=== PATIENT | male | born 1975 | race Caucasian/White ===

== ENCOUNTER → 2017-05-04 06:12 | Outpatient (CLI) | payer MEDICAID, SELFPAY ==
--- NOTE | 2017-05-04 12:37 | NEURO ---
NCS and/or EMG Patient Report Ordering Doctor: Garry Chandler DATE OF SERVICE: 05/04/17 Gus Leyva is a 42-year-old male presents for electrodiagnostic testing of the lower limbs. He reports pain in the lower back with radiation into both lower limbs, worse on the right side. He underwent lumbar spine surgery in October 2016. Electrodiagnostic findings: Peroneal motor nerve demonstrates normal distal latency amplitude and conduction velocity bilaterally. Normal tibial motor response bilaterally. Peroneal and tibial F waves within normal limits H reflex prolonged on the right side. Mildly prolonged sural latency bilaterally. Needle EMG demonstrates 1+ for relation potentials in the right vastus medialis, right anterior tibialis, right peroneus longus and right lower lumbar paraspinals. 1+ polyphasic motor units noted in the right vastus medialis, right anterior tibialis and right peroneus longus. Electrodiagnostic impression: This is an abnormal study. 1. Findings demonstrate acute on chronic right sided L4 and L5 radiculopathy. 2. No electrodiagnostic evidence is noted for peripheral polyneuropathy. 3. No EMG evidence for left-sided lumbar radiculopathy. If there are any further questions, please do not hesitate to contact me.
== END ==
PROVIDERS: Family Provider Nurse Practitioner Family; PCP Nurse Practitioner Family; Visit Provider Orthopaedic Surgery
DX: M51.36 Other intervertebral disc degeneration, lumbar region (principal); M51.27 Other intervertebral disc displacement, lumbosacral region; M51.26 Other intervertebral disc displacement, lumbar region
CPT/HCPCS: 95886; 95912

== ENCOUNTER → 2017-07-12 09:25 | Outpatient (CLI) | payer MEDICAID, SELFPAY ==
--- NOTE | 2017-07-12 09:27 | RAD_ITS ---
STUDY: X-RAY - LUMBOSACRAL SPINE REASON FOR EXAM: Male, 42 years old. Lower back pain. TECHNIQUE: 7 view(s) of the lumbosacral spine were obtained. COMPARISON: None FINDINGS: Normal lumbar lordosis. There is no substantial scoliosis. There is normal alignment of the vertebrae. There is no alteration of alignment with flexion or extension. There is multilevel endplate spondylosis of the lumbar vertebrae. There is multi-level degenerative disc disease with multi-level disc space narrowing. This is most marked at L4-5. No spine fracture Normal bilateral sacral ala, sacroiliac joints, and visualized sacrum. Normal visualized soft tissue structures. RAD/L/S Spine Comp/w Bending Views IMPRESSION: Degenerative changes of the spine, as detailed above. Electronically Signed: Real Lee DO at 21:20 EDT Tel [phone], Service support ,
== END ==
PROVIDERS: Family Provider Nurse Practitioner Family; PCP Nurse Practitioner Family; Visit Provider Orthopaedic Surgery
DX: M54.16 Radiculopathy, lumbar region (principal)
CPT/HCPCS: 72114

== ENCOUNTER 2017-10-25 10:30 | Outpatient (RCR) | payer MEDICAID, SELFPAY ==
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
--- NOTE | 2017-08-18 12:18 | HP.PTREVAL_ITS ---
Danyell Mota, It has been my pleasure to treat MAURO MORENO over the last 9 visits for RIGHT LUMBAR RADICULOPATHY WITH STENOSIS. Please see the progress note below for an update on the physical therapy plan of care! Subjective: PATIENT REPORTS IT IS SLOW BUT WATER THERAPY IS HELPING. PATIENT REPORTS THAT HE FEELS BETTER DURING ANT THE REST OF THE DAY AFTER A POOL SESSION. PATIENT REPORTS HE POSTPONED HIS SURGERY WITH DR. MOTA BECAUSE HE WANTS TO TRY MORE PHYSICAL THERAPY AND ANYTHING ELSE POSSIBLE BEFORE SURGERY. PATIENT HAS NOT QUIT SMOKING YET. PLANNING TO MAKE FOLLOW UP APPOINTMENT WITH DR. MOTA BUT HE CURRENTLY DOES NOT HAVE ONE. PATIENT REPORTS THAT GETTING OUT OF THE BED INI THE MORNING IS GOING BETTER. HE ALSO REPORTS IT TAKES LESS TIME TO GET MOVING. LESS PAIN INTENSITY THROUGHOUT THE DAY NOW AND GETTING UP AND DOWN STEPS BETTER. BEFORE STARTING PT HE REPORTS HE WAS WORSENING AND NOW HE IS HAVING IMPROVEMENT. PATIENT IS QUESTIONING IF HE SHOULD DO LAND PT TOO TO HELP LOOSE WEIGHT? Objective/Function: SLOW PROGRESS TOWARD ALL PT GOALS. PATIENT HAS DECREASED LUMBAR TENDERNESS, REPORTS OF IMPROVED FUNCTION AND DECREASED PAIN AND IMPROVED LUMBAR ROM. HE IS ALSO TOLERATING PRE IN AQUATIC THERAPY. UPON EXAM: PATIENT IS ABLE TO INDEP'LY TRANSFER FROM SIT TO STAND WITHOUT UE ASSIST. INDEP GAIT INTO PT WITH NO AD'S, DECREASED CADANCE AND MILD INCREASED TRUNK FLEXION. Dural Signs: POSITIVE SALOME LE DURAL SIGNS. Lumbar mvmt loss: flex - NIL +. ext - MOD. R SG - MIN. L SG - MIN. PATIENT HAS C/O INCREASED LBP WITH LUMBAR ROM TESTING ALL PLANES. Core strength: POOR. Palpation: PATIENT IS ACTUALLY NOT TENDER WITH PALPATION OF THE LUMBOSACRAL REGIONS TODAY. THIS IS A BIG CHANGE. LUMBAR OSWESTRY HAS NOT CHANGED SIGNIFICANTLY (FROM 29 TO 28). Plan Plan: CONT PER POC. WITH AQUATIC THERAPY. INSTRUCTED PATIENT TO SCHEDULE FOLLOW UP WITH DR. MOTA. PATIENT WANTS TO STAY WITH AQUATIC THERAPY 2 TIMES A WEEK AND STATES HIS BROTHER HAS A POOL THAT HE CAN START USING NOW TO SUPPLEMENT WHAT HE IS DOING IN HERE. WANTS TO WAIT TO CONSIDER LAND PT AGAIN AT NEXT RECHECK. Goals Goal 1:: DECREASE C/O BACK AND LE SX'S Goal Time Frame: 4-6 Weeks Goal Progress: Progressing Goal 2:: IMPROVE PERSONAL CARE, LIFTING, WALKING, SITTING, STANDING, SLEEPING, SOCIAL LIFE, TRAVEL, AND WORK/HOMEMAKING FUNCTION. Goal Time Frame: 4-6 Weeks Goal Progress: Not Progressing Goal 3:: INSTRUCT IN PROPHYLAXIS Goal Time Frame: 4-6 Weeks Goal Progress: Progressing Anticipated Interventions Patient/Client Instruction: Educate patient on: Condition, Plan of Care, Risk Factors, Benefits of Fitness Program For the Purpose of:: To improve self management Therapeutic Exercise to Include: Strength training, Body mechanics, Postural training, Flexibilty training, Gait and locomotor training, In an aquatic setting, Active ROM, Dynamic Lumbar Stabilization For the Purpose of:: To decrease pain, To increase ROM, To improve muscle performance and motor function, To increase tolerance to activity/condition/ position, To improve ability of physical actions for home/community/work/leisure , To improve gait and locomotor functions Please do not hesitate to contact me at [phone] by phone or Fax: if you have questions or concerns regarding this new plan of care! Sincerely, Tracey Fink
--- NOTE | 2017-09-19 17:34 | HP.PTREVAL_ITS ---
Danyell Mota, It has been my pleasure to treat MAURO MORENO over the last 15 visits for RIGHT LUMBAR RADICULOPATHY WITH STENOSIS. Please see the progress note below for an update on the physical therapy plan of care! Subjective: PATIENT REPORTS HE THINKS THE POOL HELPS SOME. FOLLOW UP WITH DR. MOTA THE END OF NEXT MONTH. HE REPORTS THE POOL THERAPY JUST HELPED HIM GET A LITTLE MORE MOTION. STATES HE POSTPONED SURGERY INDEFINATELY BECAUSE THE WATER THERAPY SEEMS TO BE HELPIING AND HE IS AFRAID SURGERY WILL MAKE IT WORSE THAN WHAT IT IS NOW. SURGERY WAS ORIGINALLY SCHEDULLED FOR August. PATIENT REPORTS HE HAS NOT STOPPED SMOKING. PATIENT REPORTS HE HAS TO MOVE VERY VERY CAREFULLY OR HE IS SCREWED UP FOR THE REST OF THE DAY OR LONGER. PATIENT REPORTS HE HAD TO MISS A FEW APPOINTMENTS BECAUSE HE DIDN'T FEEL SAFE DRIVING WITH HIS LEG SX'S. PATIENT REPORTS HE WOULD LIKE TO CONTINUE AQUATIC THERAPY IF POSSIBLE. STATES HE CAN USE HIS [employer] POOL BUT HIS POOL IS NOT DEEP ENOUGH FOR HIM TO DO A LOT OF THE EX'S. HE ALSO WANTS TO CONTINUE BECAUSE IT IS HELPING AND HE WANTS TO AVOID SURGERY IF AT ALL POSSIBLE. REPORTS THAT HE IS ABLE TO BEND FOR EVERYDAY ACTIVITIES WITH LESS PAIN. Objective/Function: SLOW PROGRESS CONTINUES TO BE SEEN TOWARD ALL PT GOALS. PATIENT HAS DECREASED LUMBAR TENDERNESS, REPORTS OF IMPROVED FUNCTION AND DECREASED PAIN AND IMPROVED LUMBAR ROM. HE IS ALSO TOLERATING PRE IN AQUATIC THERAPY. UPON EXAM: PATIENT IS ABLE TO INDEP'LY TRANSFER FROM SIT TO STAND WITHOUT UE ASSIST. INDEP GAIT INTO PT WITH NO AD'S, DECREASED CADANCE AND MILD INCREASED TRUNK FLEXION AND INTERMITTENT LIMP ON RIGHT LE ESPECIALLY INITIATING GAIT AFTER SITTING. Dural Signs: POSITIVE SALOME LE DURAL SIGNS. Lumbar mvmt loss : flex - NIL +. ext - MOD. R SG - MIN. L SG - MIN. PATIENT DENIES INCREASED LBP WITH LUMBAR ROM TESTING ALL PLANES TODAY EXCEPT A LITTLE BIT OF RIGHT LBP WITH FLEX. Core strength: POOR. Palpation: NO TENDERNESS WITH PALPATION OF LUMBAR OR BUTTOCK REGIONS TODAY. OTHER: LUMBAR OSWESTRY HAS IMPROVED FROM 28 TO 25. Plan Plan: CONT AQUATIC THERAPY 2X'S A WEEK WORKING TOWARD SAME GOALS AND PROGRESSING THER EX TOLERATED. PATIENT IS AGREEABLE. PATIENT TO CONTINUE SUPPLEMENTING WITH USE OF [employer]. Goals Goal 1:: DECREASE C/O BACK AND LE SX'S Goal Time Frame: 4-6 Weeks Goal Progress: Progressing Goal 2:: IMPROVE PERSONAL CARE, LIFTING, WALKING, SITTING, STANDING, SLEEPING, SOCIAL LIFE, TRAVEL, AND WORK/HOMEMAKING FUNCTION. Goal Time Frame: 4-6 Weeks Goal Progress: Progressing Goal 3:: INSTRUCT IN PROPHYLAXIS Goal Time Frame: 4-6 Weeks Goal Progress: Progressing Anticipated Interventions Patient/Client Instruction: Educate patient on: Condition, Plan of Care, Risk Factors, Benefits of Fitness Program For the Purpose of:: To improve self management Therapeutic Exercise to Include: Strength training, Body mechanics, Postural training, Flexibilty training, Gait and locomotor training, In an aquatic setting, Active ROM, Dynamic Lumbar Stabilization For the Purpose of:: To decrease pain, To increase ROM, To improve muscle performance and motor function, To increase tolerance to activity/condition/ position, To improve ability of physical actions for home/community/work/leisure , To improve gait and locomotor functions Please do not hesitate to contact me at [phone] by phone or Fax: if you have questions or concerns regarding this new plan of care! Sincerely, Tracey Fink
--- NOTE | 2017-10-25 11:53 | HP.PTDCSUM ---
HP - PT D/C Summary It has been my pleasure to treat MAURO MORENO under orders from Danyell Mota, for the diagnosis of RIGHT LUMBAR RADICULOPATHY WITH STENOSIS for a total of 23 visit(s). Discharge Date: 10/25/17 Please see the following information for a summary of their discharge status. - Subjective Subjective: PATIENT REPORT HE IS NOT GETTING MUCH PAIN DOWN THROUGH HIS LEG HE WAS. HE REPORTS HE IS ACTUALLY HAVING GOOD DAYS NOW WHERE HE FEELS LIKE HE CAN GET UP AND DO SOME THINGS. HE ATTRIBUTES HIS IMPROVEMENT TO THE WATER THERAPY AND AN INVERSION TABLE. BACK ON GABAPENTIN AND BACKLAFIN AND HAS BEEN SINCE LAST WEEK. THE BACK PAIN I CAN DEAL WITH BUT THE LEG PAIN EFFECTS MY MOBILITY AND KEEPS ME UP AT NIGHT. PATIENT REPORTS THE POOL THERAPY HELPS A LOT AND HE WANTS TO CONTINUE. PATIENT REPORTS HE CAN WALK AND STAND A LITTLE BETTER AND HE HAS EVEN HAD SOME PAINFREE MORNINGS ALTHOUGH SHORT LIVED. FOLLOW UP WITH DR. MOTA IS SCHEDULED FOR Oct OR . FEAR OF RIGHT LE GIVING OUT GOING DOWN STEPS. PATIENT REPORTS HE KNOWS HOW TO DO ALL OF HIS EX'S IN THE POOL BUT HE DOESN'T HAVE A POOL TO DO THEM IN YET. - Pain Back Pain Intensity (Out of 10): 4 Right LE Pain Intensity (Out of 10): 6 - Overall Improvement % Improvement: 40 - Objective Objective/Function: PATIENT CONTINUES TO MAKE SLOW PROGRES TOWARD ALL PT GOALS. PATIENT HAS NO LUMBAR TENDERNESS, REPORTS OF IMPROVED FUNCTION AND DECREASED PAIN. HE HAS TOLERATED PRE IN AQUATIC THERAPY BUT HE HAS MORE SUBJECTIVE THAN OBJECTIVE IMPROVEMENTS AT THIS TIME. HE CONTINUES TO HAVE SIGNIFICANT LIMP ON THE RIGH LE. HE NOW HAS DECREASED LIGHT TOUCH SENSATION OF THE RIGHT LATERAL LEG COMPARED TO THE LEFT. UPON EXAM: PATIENT IS ABLE TO INDEP'LY TRANSFER FROM SIT TO STAND WITHOUT UE ASSIST. INDEP GAIT INTO PT WITH NO AD'S (PATIENT REPORTS HE HAS NOT BEEN USING HIS CANE BUT ALWAYS HAS IT WITH HIM), DECREASED CADANCE AND MILD INCREASED TRUNK FLEXION AND INTERMITTENT LIMP ON RIGHT LE. ABLE TO INITIATE GAIT AFTER SITTING WITH LESS DIFFICULTY. C/O INCREASED RIGHT LE PAIN WITH ATTEMPS AT GAIT CORRECTION AND HE IS ONLY ABLE TO PARTIALLY CORRECT. Dural Signs: POSITIVE SALOME LE DURAL SIGNS. Lumbar mvmt loss: flex - NIL - C/O INCREASED RIGHT LOW BACK AND LE PAIN UPON RETURN FROM FLEX. ext - MOD - C/O INCREASED RIGHT LOW BACK AND LE PAIN UPON WITH EXTENSION TESTING IN STANDING. R SG - MIN - RELEIVES RIGHT LE SX'S. L SG - MIN - SHOOTS PAIN DOWN RIGHT LOW. PATIENT REPORTS THAT THE PAIN HE IS GETTING WITH TESTING TODAY IS IMPROVED FROM PRIOR. MMT: SALOME LE'S 5/5 WITH MMT'ING. ROM: TIGHTNESS IN SALOME HIP FLEXORS, HS'S AND GASTROC SOLEUS COMPLEX'S. DTR'S - UNABLE TO ELICIT SALOME LE'S. Core strength: POOR. Palpation: NO TENDERNESS WITH PALPATION OF LUMBAR OR BUTTOCK REGIONS TODAY. OTHER: LUMBAR OSWESTRY HAS IMPROVED FROM 25 TO 22. - Goals Goal 1:: DECREASE C/O BACK AND LE SX'S Goal Progress: Progressing Goal 2:: IMPROVE PERSONAL CARE, LIFTING, WALKING, SITTING, STANDING, SLEEPING, SOCIAL LIFE, TRAVEL, AND WORK/HOMEMAKING FUNCTION. Goal Progress: Progressing Goal 3:: INSTRUCT IN PROPHYLAXIS Goal Progress: Goal Met - Plan Plan: PATIENT IS APPROPRIATE FOR DISCHARGE TO [facility] POOL PROGRAM AT THIS TIME AND SUGGESTIONS GIVEN FOR LOCAL POOL OPTIONS. PATIENT IS RELUCTANT BUT AGREEABLE TO DISCHARGE AND PLANS TO FOLLOW UP WITH DR. MOTA NEXT WEEK. - D/C Information If there are questions or concerns regarding this patient's physical therapy, please feel free to call me at [phone]. Thank you for the referral of this patient. Sincerely, Tracey Fink
== END 2017-10-25 14:44 | disposition home or self-care (01) ==
LOC: PT 10:30
PROVIDERS: Family Provider Nurse Practitioner Family; PCP Nurse Practitioner Family; Visit Provider Orthopaedic Surgery
DX: M54.16 Radiculopathy, lumbar region (principal); M48.061 Spinal stenosis, lumbar region without neurogenic claudication
CPT/HCPCS: 97113; 97162; 97164; 97530

== ENCOUNTER → 2018-05-26 08:36 | Outpatient (CLI) | payer MEDICAID, SELFPAY ==
[2018-04-07 08:20] VITALS: BMI 39.6
--- NOTE | 2018-05-26 08:43 | RAD_ITS ---
STUDY: X-RAY - LEFT HAND REASON FOR EXAM: Male, 43 years old. Lumps around the fifth and third digits. TECHNIQUE: 3 view(s) of the hand. COMPARISON: None. FINDINGS: Normal radiocarpal articulation. Normal distal radioulnar joint. Normal visualized carpal bones. Normal carpal articulations Normal carpometacarpal articulation of the thumb. Normal second through fifth carpometacarpal joints. Normal metacarpi. Normal metacarpophalangeal joint of the thumb. Normal interphalangeal joint of the thumb. Normal proximal and distal phalanges of the thumb. Normal metacarpophalangeal joints of the second through fifth fingers. Normal proximal and distal interphalangeal joints of the second through fifth fingers. Normal phalanges of the second through fifth fingers. The soft tissue structures are unremarkable. RAD/Hand Min 3 Views IMPRESSION: Normal x-ray examination of the hand. No fractures. No bone or joint disease. The soft tissues look normal. Electronically Signed: Willian Cool MD at 5:02 EDT Tel , Service support ,
== END ==
DX: M25.542 Pain in joints of left hand (principal)
CPT/HCPCS: 73130

== ENCOUNTER → 2019-01-09 20:00 | Outpatient (CLI) | payer MEDICAID, SELFPAY ==
[2018-04-07 08:20] VITALS: BMI 39.6
== END ==
DX: G47.10 Hypersomnia, unspecified (principal)
CPT/HCPCS: 95810

== ENCOUNTER → 2019-01-16 20:00 | Outpatient (CLI) | payer MEDICAID, SELFPAY ==
[2019-01-03 09:38] VITALS: BMI 39.6
== END ==
PROVIDERS: Referring Provider Nurse Practitioner Family; Visit Provider Nurse Practitioner Family
DX: G47.33 Obstructive sleep apnea (adult) (pediatric) (principal)
CPT/HCPCS: 95811

== ENCOUNTER → 2019-01-29 10:13 | Outpatient (CLI) | payer MEDICAID, SELFPAY ==
[2019-01-03 09:38] VITALS: BMI 39.6
== END ==
PROVIDERS: Visit Provider Nurse Practitioner Family
DX: G47.33 Obstructive sleep apnea (adult) (pediatric) (principal)

== ENCOUNTER → 2019-02-14 12:48 | Outpatient (CLI) | payer MEDICAID, SELFPAY ==
[2019-01-03 09:38] VITALS: BMI 39.6
== END ==
PROVIDERS: Visit Provider Surgery
DX: Z00.00 Encounter for general adult medical examination without abnormal findings (principal)

== ENCOUNTER 2019-05-10 10:00 | Outpatient (RCR) | payer MEDICAID, SELFPAY ==
[2019-01-03 09:38] VITALS: BMI 39.6
--- NOTE | 2019-03-13 15:26 | HP.PTEVAL ---
Patient's Visit Information MAURO MORENO is a 43 year old M referred to Physical Therapy by Lillian Cloud NP-C with a diagnosis of R hip pain. Date of Evaluation: 03/13/19 Physical Therapist: Reji Chang, PT, ATC - Visit Plan Frequency: 2x /Week Duration: 4-6 Weeks Plan: Land therapy 1 time per week for 4 weeks consisting of core strengthening, postural edu, LE strengthening, and HEP. Aquatic therapy 1 time per week for 4 weeks for core strengthening, postural edu, LE strengthening, and HEP - Subjective Findings: Pt reports a long Hx of LB pain in the past. Pt reports he finally had surgery in 2017, unfortunately pt reports he has felt worse since having the surgery. Pt reports he has seen other surgeons who all agree he needs to have surgery at this time. Pt reports he would like to have physical therapy in order to attempt strengthen his spine and R hip. Pt notes he has sciatica in R LE that extends all the way down to his ankle. Pt reports sleep difficulty at night secondary to pain. No xrays on R hip at this time. 4/10 pain at rest, 8/10 (stair negotiation) - Pain R hip pain Pain Intensity (Out of 10): 4 Pain Intensity Range: 8 - Objective Neuro: B LE sensation is WNL to light touch. ROM: L/S ROM is WNL at this time. MMT: B LE's are grossly 5/5 throughout. Gait: Pt was able to ambulate 340 feet until beginning to limp secondary to LBP and R LE radiculopathy. Special tests: pos dural tension tests. - Goals Goal 1:: Decrease LBP and R hip pain x 50% to aid with sleep Goal Time Frame: 2-4 Weeks Goal 2:: Pt will be able to ambulate greater than 1000 feet to aid with community ambulation Goal Time Frame: 2-4 Weeks Goal 3:: I with HEP Goal Time Frame: 2-4 Weeks - Rehabilitation Potential Physical Therapy Diagnosis: Pt has R hip pain, weakness, and intolerance for prolonged ambulation secondary to DDD of LBP Rehabilitation Potential: Good - Anticipated Interventions Patient/Client Instruction: Educate patient on: Condition, Plan of Care For the Purpose of:: To improve self management Therapeutic Exercise to Include: Strength training, Endurance training, Balance training, Postural training, Flexibilty training, Dynamic Lumbar Stabilization For the Purpose of:: To decrease pain, To improve muscle performance and motor function Cryotherapy (ice pack, ice massage): Yes For the Purpose of:: To decrease pain Thank you for the opportunity to evaluate your patient. For Medicare and Medicare HMO plans, please review the plan of care and approve it. It will need to be FAXED BACK to us at [phone] for Medicare purposes. For Medicare only, by signing this I certify the plan of care. Please let me know if there are questions or concerns regarding this plan of care. Physician Signature: Date:
--- NOTE | 2019-04-12 11:05 | HP.PTREVAL_ITS ---
Lillian Cloud, MOULDER OPERATOR-C, It has been my pleasure to treat MAURO MORENO over the last 9 visits for R hip pain. Please see the progress note below for an update on the physical therapy plan of care! Subjective: I am feeling a little better. Sore from work yesterday Objective/Function: LBP 09/13 this date. Pt is able to ambulate 680 feet until wanting to rest secondary to LBP. Pt is progressing slowly at this time but continues to report increased tolerance with activity Plan Plan: Cont with water and land PT at this time for 8 more visits Goals Goal 1:: Decrease LBP and R hip pain x 50% to aid with sleep Goal Time Frame: 2-4 Weeks Goal Progress: Progressing Goal 2:: Pt will be able to ambulate greater than 1000 feet to aid with community ambulation Goal Time Frame: 2-4 Weeks Goal Progress: Progressing Goal 3:: I with HEP Goal Time Frame: 2-4 Weeks Goal Progress: Progressing Anticipated Interventions Patient/Client Instruction: Educate patient on: Condition, Plan of Care For the Purpose of:: To improve self management Therapeutic Exercise to Include: Strength training, Endurance training, Balance training, Postural training, Flexibilty training, Dynamic Lumbar Stabilization For the Purpose of:: To decrease pain, To improve muscle performance and motor function Cryotherapy (ice pack, ice massage): Yes For the Purpose of:: To decrease pain Please do not hesitate to contact me at [phone] by phone or if you have questions or concerns regarding this new plan of care! Sincerely, Reji Chang, PT, ATC
--- NOTE | 2019-05-10 10:35 | HP.PTREVAL ---
Lillian Cloud, [employer], It has been my pleasure to treat MAURO MORENO over the last 13 visits for R hip pain. Please see the progress note below for an update on the physical therapy plan of care! Subjective: I was doing well until i sprained my ankle and fell. Objective/Function: LBP and R hip pain was 5/10 prior to falling, now 8/10 secondary to the fall. Pt is unable to ambulate great distance today secondary to ankle pain. Pt was progressing well until having this fall Plan Plan: Cont with Pt land and water ex's for increased R hip and LB strengthening Goals Goal 1:: Decrease LBP and R hip pain x 50% to aid with sleep Goal Time Frame: 2-4 Weeks Goal Progress: Progressing Goal 2:: Pt will be able to ambulate greater than 1000 feet to aid with community ambulation Goal Time Frame: 2-4 Weeks Goal Progress: Progressing Goal 3:: I with HEP Goal Time Frame: 2-4 Weeks Goal Progress: Progressing Anticipated Interventions Patient/Client Instruction: Educate patient on: Condition, Plan of Care For the Purpose of:: To improve self management Therapeutic Exercise to Include: Strength training, Endurance training, Balance training, Postural training, Flexibilty training, Dynamic Lumbar Stabilization For the Purpose of:: To decrease pain, To improve muscle performance and motor function Cryotherapy (ice pack, ice massage): Yes For the Purpose of:: To decrease pain Please do not hesitate to contact me at [phone] by phone or if you have questions or concerns regarding this new plan of care! Sincerely, Reji Chang, PT, ATC
--- NOTE | 2019-10-02 14:15 | HP.PT.NRP ---
MAURO MORENO was seen in my office for initial evaluation on 03/13/19. The following Plan of Care was established for this patient: Initial Frequency: 2x /Week Initial Duration: 4-6 Weeks Patient/Client Instruction: Educate patient on: Condition, Plan of Care For the Purpose of:: To improve self management Therapeutic Exercise to Include: Strength training, Endurance training, Balance training, Postural training, Flexibilty training, Dynamic Lumbar Stabilization For the Purpose of:: To decrease pain, To improve muscle performance and motor function Cryotherapy (ice pack, ice massage): Yes For the Purpose of:: To decrease pain This patient was last seen in our office . Pertinent comments regarding their Physical therapy will appear below: Pt was treated for 13 PT visits for R hip pain through the date of 05/10/19. Pt has not returned through todays date and is discontinued at this time. At this point I will be discontinuing this patient from physical therapy. I would be happy to see this patient again in the future if found appropriate by the physician. Thank you! Reji Chang, PT, ATC
== END 2019-05-10 19:00 | disposition home or self-care (01) ==
LOC: PT 10:00
PROVIDERS: Referring Provider Nurse Practitioner Family; Visit Provider Nurse Practitioner Family
DX: M25.551 Pain in right hip (principal)
CPT/HCPCS: 97110; 97113; 97161; 97164

== ENCOUNTER → 2019-10-05 08:24 | Outpatient (CLI) | payer MEDICAID, SELFPAY ==
[2019-04-11 09:55] VITALS: BMI 37.5
--- NOTE | 2019-10-05 12:44 | PFT ---
INTRODUCTION: The patient is a 44-year-old male that presents for pulmonary function studies secondary to a diagnosis of shortness of breath. Respiratory therapy reports good patient effort. Bronchodilators were used during testing. INTERPRETATION: Forced expiration spirometry demonstrates no evidence of a large airways obstructive ventilatory defect. There was no significant response to aerosolized bronchodilators. Spirograms are of good quality and plateau normally. Body plethysmography was performed and reveals lung volumes to be within normal limits. Diffusing capacity by single breath CO is also within normal limits. IMPRESSION: Grossly normal pulmonary function studies.
== END ==
PROVIDERS: Referring Provider Nurse Practitioner Family; Visit Provider Nurse Practitioner Family
DX: R05 Cough (principal)
CPT/HCPCS: 94060; 94726; 94729

== ENCOUNTER → 2019-10-24 10:55 | Outpatient (CLI) | payer MEDICAID, SELFPAY ==
[2019-04-11 09:55] VITALS: BMI 37.5
[2019-10-24 11:26] LABS: Absolute Lymphocyte Count 2.47 X10^3/uL (0.83-4.51); Absolute Neutrophil Count 5.3 X10^3/uL (2.0-7.7); Basophil# 0.12 X10^3/uL; Basophil% 1.4 % (0-1); Eosinophil# 0.29 X10^3/uL; Eosinophils% 3.3 % (0-5); Hematocrit 44.2 % (40-54); Hemoglobin 14.3 g/dL (13.0-16.5); Lymphocyte # 2.47 X10^3/ul (4.0); Lymphocyte % 27.9 % (19-41); Mean Corp Hgb Conc 32.4 g/dL (32-36); Mean Corpuscular Hgb 30.2 pg (27.0-32.0); Mean Corpuscular Volume 93.2 fL (80-94); Mean Platelet Vol. 10.4 fl (6.2-12.0); Monocyte# 0.67 X10^3/uL; Monocyte% 7.6 % (0-10); NRBC Flagged by Analyzer 0 % (0-5); Neutrophil # 5.27 X10^3/uL (2.7-7.7); Neutrophil % 59.3 % (47-70); Platelet Count 245 K/mm3 (150-450); RBC Distribution Width CV 13.3 % (11.6-14.6); RBC Distribution Width SD 45.6 fl (35.1-43.9); Red Blood Count 4.74 M/mm3 (4.6-6.2); White Blood Count 8.9 K/mm3 (4.4-11.0)
[2019-10-24 11:57] LABS: ALB/GLOB Ratio 0.9 RATIO (0.9-2.4); AST(SGOT) 24 U/L (15-37); Alanine Aminotransfer ALT/SGPT 28 U/L (16-61); Albumin, Serum 3.7 g/dL (3.2-5.0); Alkaline Phosphatase 58 U/L (45-117); Anion Gap 3 (5-15); BUN 14 mg/dL (7-18); Calcium,Total 9.1 mg/dL (8.5-10.1); Chloride 105 mmol/L (98-107); Cholesterol 221 mg/dL (200); Creatinine, Serum 1.08 mg/dL (0.70-1.30); EST Glomerular Filtration Rate 79 mL/min (>60); Est Glom Filt Rate - Afr Amer 95 mL/min (>60); Globulin 3.9 g/dL (2.2-4.2); Glucose 98 mg/dL (74-106); High Density Lipoprotein 36 mg/dL; Potassium 4.1 mmol/L (3.5-5.1); Protein, Total 7.6 g/dL (6.4-8.2); Sodium Level 135 mmol/L (136-145); Triglycerides 130 mg/dL; Very Low Density Lipoprotein 26 mg/dL (5-40)
[2019-10-24 11:58] LABS: Vitamin D,25 Hydroxy 41.8 ng/mL
== END ==
PROVIDERS: Referring Provider Nurse Practitioner Family; Visit Provider Nurse Practitioner Family
DX: I95.9 Hypotension, unspecified (principal); R42 Dizziness and giddiness; E55.9 Vitamin D deficiency, unspecified; E78.5 Hyperlipidemia, unspecified
CPT/HCPCS: 36415; 80053; 80061; 82306; 85025

== ENCOUNTER → 2020-05-27 07:54 | Outpatient (CLI) | payer MEDICAID, SELFPAY ==
[2020-05-01 11:13] VITALS: BMI 37.4
--- NOTE | 2020-05-27 08:07 | CT_ITS ---
STUDY: CT PARANASAL SINUSES REASON FOR EXAM: Male, 45 years old. Chronic sinusitis. RADIATION DOSAGE (If Supplied By Facility): CTDIvol = ( 33.06 ) mGy, DLP = ( 809.06 ) mGycm TECHNIQUE: Axial CT images of the paranasal sinuses were obtained. Multiplanar reconstructions. The protocol utilizes one or more of the following dose reduction techniques: automated exposure control, adjustment of mA and/or kV according to patient size, and/or use of iterative reconstruction technique. reconstructed. Individualized dose optimization techniques were used for this CT. COMPARISON: No relevant priors. FINDINGS: There is a 1.1 cm x 0.8 cm rounded soft tissue density subcutaneous tissue in the right submandibular region suggestive of a small lymph node. Post Surgical Changes: None. Frontal Sinus and Recess: Normal aeration without mucosal inflammatory disease. Ethmoidal Sinuses: Minimal mucosal thickening along the posterior aspect of the ethmoid sinuses. Maxillary Sinuses: Normal aeration without mucosal inflammatory disease. Ostiomeatal Complex: Clear. Sphenoid Sinus: Normal aeration without mucosal inflammatory disease. Sphenoethmoidal Recess: Clear. Nasal Turbinate (Right): Middle Turbinate (Right): Normal. Middle Turbinate (Left): Normal. Inferior Turbinate (Right): Normal. Inferior Turbinate (Left): Normal. Nasal Septum: Midline. Nasal Airway: Clear. Cribiform Plate / Anterior Cranial Fossa: Normal. Orbits: Normal. CT/Sinus/Facial Bone IMPRESSION: Minimal degree of mucosal thickening along the posterior aspect of the ethmoid sinuses. Electronically Signed: Jasbir Phillips MD at 12:55 EDT , Service support ,
== END ==
PROVIDERS: Referring Provider Otolaryngology; Visit Provider Otolaryngology
DX: J32.9 Chronic sinusitis, unspecified (principal)
CPT/HCPCS: 70486

== ENCOUNTER → 2020-06-09 13:58 | Outpatient (CLI) | payer MEDICAID, SELFPAY ==
[2020-05-01 11:13] VITALS: BMI 37.4
== END ==
PROVIDERS: Referring Provider Otolaryngology; Visit Provider Otolaryngology
DX: Z11.59 Encounter for screening for other viral diseases (principal)
CPT/HCPCS: 87635; C9803; U0002

== ENCOUNTER → 2020-06-27 16:11 | Outpatient (CLI) | payer MEDICAID, SELFPAY ==
[2020-05-01 11:13] VITALS: BMI 37.4
== END ==
PROVIDERS: Referring Provider Otolaryngology; Visit Provider Otolaryngology
DX: Z03.818 Encounter for observation for suspected exposure to other biological agents ruled out (principal); Z11.59 Encounter for screening for other viral diseases
CPT/HCPCS: 87635; C9803; U0002

== ENCOUNTER → 2021-01-22 10:25 | Outpatient (CLI) | payer MEDICAID, SELFPAY ==
[2021-01-22 11:40] LABS: Absolute Neutrophil Count 5.9 X10^3/uL (2.0-7.7); Basophil# 0.14 X10^3/uL; Basophil% 1.5 % (0-1); Eosinophil# 0.21 X10^3/uL; Eosinophils% 2.3 % (0-5); Hematocrit 43.3 % (40-54); Hemoglobin 14.2 g/dL (13.0-16.5); Lymphocyte % 23.6 % (19-41); Mean Corp Hgb Conc 32.8 g/dL (32-36); Mean Corpuscular Hgb 31.5 pg (27.0-32.0); Mean Platelet Vol. 10.3 fl (6.2-12.0); Monocyte% 8.6 % (0-10); NRBC Flagged by Analyzer 0 % (0-5); Neutrophil # 5.93 X10^3/uL (2.7-7.7); Neutrophil % 63.7 % (47-70); Platelet Count 317 K/mm3 (150-450); RBC Distribution Width CV 15.1 % (11.6-14.6); RBC Distribution Width SD 53.4 fl (35.1-43.9); Red Blood Count 4.51 M/mm3 (4.6-6.2); White Blood Count 9.3 K/mm3 (4.4-11.0)
[2021-01-22 12:17] LABS: ALB/GLOB Ratio 0.9 RATIO (0.9-2.4); AST(SGOT) 24 U/L (15-37); Alanine Aminotransfer ALT/SGPT 45 U/L (16-61); Albumin, Serum 3.6 g/dL (3.2-5.0); Alkaline Phosphatase 49 U/L (45-117); Anion Gap 6 (5-15); BUN 15 mg/dL (7-18); BUN/Creat Ratio 14.9 RATIO (10-20); Calcium,Total 9.3 mg/dL (8.5-10.1); Chloride 102 mmol/L (98-107); Cholesterol 230 mg/dL (200); Creatinine, Serum 1.01 mg/dL (0.70-1.30); EST Glomerular Filtration Rate 85 mL/min (>60); Est Glom Filt Rate - Afr Amer 102 mL/min (>60); Glucose 99 mg/dL (74-106); High Density Lipoprotein 45 mg/dL; Potassium 4.4 mmol/L (3.5-5.1); Protein, Total 7.6 g/dL (6.4-8.2); Sodium Level 136 mmol/L (136-145); Triglycerides 136 mg/dL; Very Low Density Lipoprotein 27 mg/dL (5-40)
== END ==
PROVIDERS: PCP Nurse Practitioner Adult Health; Referring Provider Nurse Practitioner Adult Health; Visit Provider Nurse Practitioner Adult Health
DX: R09.81 Nasal congestion (principal)
CPT/HCPCS: 36415; 80053; 80061; 85025

== ENCOUNTER 2022-04-09 11:50 | Emergency (ER) | payer MEDICAID, SELFPAY ==
[2022-04-09 11:51] VITALS: BP 175/84; PULSE 117; RESP 17; TEMP 36.2; O2SAT 100; BMI 34.6
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
[2022-04-09] MEDS: HYDROcodone Bitartrate/Apap 5/325 Tablet PO (13:23)
[2022-04-09] MEDS: cycloBENZAPRine HCl 10 MG Tablet PO (13:23)
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
[2022-04-09 14:37] VITALS: BP 165/82; PULSE 100; RESP 16
== END 2022-04-09 14:38 | disposition home or self-care (01) ==
PROVIDERS: Emergency Provider Emergency Medicine; PCP Internal Medicine; Visit Provider Emergency Medicine
DX: M62.830 Muscle spasm of back (principal); V49.88XA Car occupant (driver) (passenger) injured in other specified transport accidents, initial encounter; I10 Essential (primary) hypertension; F17.210 Nicotine dependence, cigarettes, uncomplicated; Z79.899 Other long term (current) drug therapy
CPT/HCPCS: 70450; 72100; 99283

== ENCOUNTER 2022-04-14 07:40 | Emergency (ER) | payer MEDICAID, SELFPAY ==
[2022-04-14 07:41] VITALS: BP 160/88; PULSE 106; RESP 17; TEMP 35.6; O2SAT 100; BMI 33.7
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
[2022-04-14 08:28] LABS: Absolute Lymphocyte Count 1.16 X10^3/uL (0.83-4.51); Absolute Neutrophil Count 7.7 X10^3/uL (2.0-7.7); Basophil# 0.18 X10^3/uL; Basophil% 1.8 % (0-1); Eosinophil# 0.13 X10^3/uL; Eosinophils% 1.3 % (0-5); Hematocrit 41.4 % (40-54); Lymphocyte # 1.16 X10^3/ul (0.83-4.51); Lymphocyte % 11.4 % (19-41); Mean Corp Hgb Conc 31.4 g/dL (32-36); Mean Corpuscular Hgb 32.8 pg (27.0-32.0); Mean Corpuscular Volume 104.5 fL (80-94); Mean Platelet Vol. 10.4 fl (6.2-12.0); Monocyte# 0.98 X10^3/uL; Monocyte% 9.6 % (0-10); NRBC Flagged by Analyzer 0 % (0-5); Neutrophil # 7.65 X10^3/uL (2.7-7.7); Neutrophil % 75.2 % (47-70); Platelet Count 344 K/mm3 (150-450); RBC Distribution Width CV 13.8 % (11.6-14.6); RBC Distribution Width SD 53.2 fl (35.1-43.9); Red Blood Count 3.96 M/mm3 (4.6-6.2); White Blood Count 10.2 K/mm3 (4.4-11.0)
[2022-04-14 08:40] LABS: Anion Gap 9 (5-15); BUN 24 mg/dL (7-18); BUN/Creat Ratio 21.1 RATIO (10-20); Calcium,Total 10.4 mg/dL (8.5-10.1); Chloride 104 mmol/L (98-107); Creatinine, Serum 1.14 mg/dL (0.70-1.30); EST Glomerular Filtration Rate 73 mL/min (>60); Est Glom Filt Rate - Afr Amer 89 mL/min (>60); Estimated Creatinine Clearance 80.97 ml/min; Glucose 102 mg/dL (74-106); Potassium 4.7 mmol/L (3.5-5.1); Sodium Level 135 mmol/L (136-145)
[2022-04-14 08:42] LABS: Amphetamine Urine VISTA NEGATIVE (<1000 ng/mL); Barbiturate Urine VISTA NEGATIVE (< 200 ng/mL); Benzodiazepine Urine VISTA NEGATIVE (< 200 ng/mL); Cocaine Urine VISTA NEGATIVE (< 300 ng/mL); Ecstacy Urine VISTA POSITIVE (< 500 ng/mL); Methadone Urine VISTA NEGATIVE (< 300 ng/mL); PCP Urine VISTA NEGATIVE (< 25 ng/mL); THC Urine VISTA NEGATIVE (< 50 ng/mL); Vista UDS pH Range 6
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
[2022-04-14 09:00] LABS: Alcohol, Blood (Medical)-Serum < 3.0 mg/dL
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
--- NOTE | 2022-04-14 11:14 | CM.ED ---
LEON updated patient and his mother that plan is for inpatient psych. LEON called [facility]. They have beds. LEON faxed referral to [facility]. LEON faxed referral to [facility] Nicolle ECKERT
--- NOTE | 2022-04-14 11:59 | EKG12_ITS ---
Test Reason : Blood Pressure : / mmHG Vent. Rate : 097 BPM Atrial Rate : 097 BPM P-R Int : 134 ms QRS Dur : 080 ms QT Int : 342 ms P-R-T Axes : 030 038 075 degrees QTc Int : 434 ms Normal sinus rhythm Nonspecific ST and T wave abnormality Abnormal ECG Confirmed by JAMES YOUNG, JENNIFER ([id number]), newspaper editor ALICIA CHAMPAGNE ([id number]) on 04/16/2022 10:05:59 AM Referred By: Confirmed By:JENNIFER RAMIREZ MD
--- NOTE | 2022-04-14 12:35 | CM.ED ---
Addendum entered by Nicolle Kirby 04/14/22 13:41: Krystal, RN advised that patient was accepted at [facility]. Accepting MD is Julian. [place] slip completed and faxed to [facility]. [employer] called for transport. 90 minutes for transport. SW spoke to patient and updated him that the plan is for him to go to [facility]. He was provided with the address for [facility] and time of discharge. Nicolle ECKERT Original Note: LEON received call from [facility]. MD Le had declined patient. LEON called [facility]. Per intake staff the patient has been presented to the MD but the MD has not responded yet. LEON faxed referral to [facility]. Nicolle ECKERT
[2022-04-14 12:49] VITALS: BP 138/74; PULSE 82; RESP 16; TEMP 36.2; O2SAT 98
[2022-04-14 13:00] VITALS: RESP 18
--- NOTE | 2022-04-14 14:15 | ED.RN ---
ATTEMPT TO CALL [facility] FOR REPORT. UNABLE TO REACH ANYONE. PHONE KEPT RINGING. WILL TRY AGAIN
--- NOTE | 2022-04-14 14:35 | ED.RN ---
ATTEMPT TO CALL REPORT AGAIN TO [facility]. UNABLE TO REACH ANYONE AT THIS TIME.
--- NOTE | 2022-04-14 15:57 | CM.ED ---
SW met with patient. Patient was noted to be in the room talking to himself. Patient had voiced that there were people in the room and this automatic typewriter inspector did not see any people. Patient asked for address and phone number for [facility]. Patient had previously been provided that but when this automatic typewriter inspector asked about it patient said that they took it. SW provided patient with address and phone number of [facility]. Nicolle ECKERT
--- NOTE | 2022-04-14 16:07 | NURSING ---
CM CALLED, THEY ARE HAVING TROUBLE WITH THE ONE THEY SENT. ANOTHER ON IS 45 MIN OUT.
--- NOTE | 2022-04-14 17:20 | NURSING ---
CALLED [facility], ETA IS 20 MIN
== END 2022-04-14 18:00 ==
PROVIDERS: Emergency Provider Emergency Medicine; PCP Internal Medicine; Visit Provider Emergency Medicine
DX: F29 Unspecified psychosis not due to a substance or known physiological condition (principal); F17.210 Nicotine dependence, cigarettes, uncomplicated; E78.5 Hyperlipidemia, unspecified; I10 Essential (primary) hypertension; K21.9 Gastro-esophageal reflux disease without esophagitis; Z86.69 Personal history of other diseases of the nervous system and sense organs; Z79.899 Other long term (current) drug therapy; R68.83 Chills (without fever); R51.9 Headache, unspecified
CPT/HCPCS: 36415; 70450; 80048; 80307; 82077; 85025; 87811; 93005; 99284

== ENCOUNTER 2024-03-20 12:06 | Inpatient (IN) | payer MEDICAID, SELFPAY ==
[2024-03-20] VITALS (10 sets, daily range): BP systolic 125–152; BP diastolic 75–100; PULSE 68–92; RESP 14–25; TEMP 36.9–37.2; O2SAT 95–100; BMI 33.3; BMI 33.5
--- NOTE | 2024-03-20 13:17 | CT_ITS ---
EXAM: CT HEAD WITHOUT INTRAVENOUS CONTRAST CLINICAL INDICATION: Fall TECHNIQUE: Multiple axial images were obtained of the head without intravenous contrast. CTDIvol = ( 44.99 ) mGy, DLP = ( 863.60 ) mGycm This CT exam was performed using one or more of the following dose reduction techniques: automated exposure control, adjustment of the mA and/or kV according to patient size, and/or use of iterative reconstruction technique. COMPARISON: No relevant prior studies available. FINDINGS: BRAIN AND EXTRA-AXIAL SPACES: No acute intracranial hemorrhage, mass effect or edema. No evidence of acute cortical stroke. Periventricular small vessel ischemic change. No midline shift or hydrocephalus. Diffuse parenchymal atrophy. No intra- or extra-axial hemorrhage. Posterior fossa structures are unremarkable. Basal cisterns are patent. BONES/JOINTS: Unremarkable. No discrete lytic or blastic abnormalities. SOFT TISSUES: Left superior frontal scalp hematoma. VASCULATURE: Atherosclerotic calcifications of the carotid siphons and vertebrobasilar arteries. SINUSES: Unremarkable as visualized. Clear. MASTOID AIR CELLS: Visualized sinuses and mastoid air cells are clear. ORBITS: Visualized globes, extraocular muscles, optic nerves and retrobulbar fat appear unremarkable. CT/Brain/Head without Contrast IMPRESSION: 1. Left superior scalp hematoma but no acute calvarial fracture or acute intracranial pathology. 2. Diffuse involutional changes and chronic ischemic small vessel white matter disease. AIDOC was utilized to assist in identifying pertinent positive findings. Electronically Signed: Devyn Chowdhury MD at 14:49 EST ,
--- NOTE | 2024-03-20 13:22 | EX.ED.DYSGE1 ---
HPI History of Present Illness Chief Complaint: Weakness Narrative Narrative: Chief complaint and HPI: Myalgias and generalized weakness. 48-year-old male with past medical history of seizures (seizure-free since 17 years old), HTN, depression, HLD presents for evaluation of myalgias and generalized weakness. Patient states 2 weeks ago while at work he had a mechanical fall and hit the back of his head. No LOC. Has a posterior scalp hematoma. Not evaluated for this. On a blood thinners. Patient states since then he has been having generalized weakness and full body myalgias. States this is causing mechanical falls. Saw his PCP today who referred him to the emergency department. He denies any fever, chills, shortness of breath, chest pain abdominal pain, nausea, vomiting, dysuria. Denies any drug abuse. States he has been eating and drinking well. Denies numbness or tingling. Denies neurological deficit. Review of systems: See HPI Medications: As listed on the chart Allergies: As listed on the chart PFSH: Per chart Vital signs: As listed on the chart. Reviewed. Physical exam: Gen: A&O x3, NAD Head: Normocephalic, left posterior scalp hematoma Eyes: No sclera icterus, conjunctiva clear, PERRL, EOMI ENT: Moist mucous membranes, No facial asymmetry Neck: Trachea midline, No JVD CV: RRR, no murmurs, no peripheral edema Resp: Lungs CTA BL, no w/r/c GI: Abd soft, non-distended, non-tender, no r/r/g Rectal: Normal external examination. No evidence of hemorrhoids or fissures. Normal tone and sensation. No masses, fluctuance, or tenderness. No pain out of proportion. Stool is brown Musc: Moves all extremities, no deformity, strength +5/5 in all extremities except for the bilateral thighs where strength is plus +4 and endorses pain with flexion Skin: Warm, dry, intact Neuro: Alert, oriented, grossly intact, sensation intact, no focal deficits Psych: Cooperative, appropriate mood and affect [facility] Medical History Acid reflux Constipation Abdominal pain SOB (shortness of breath) Arthritis Back problem Fatigue Sleep apnea History of epilepsy Nicotine dependence Essential (primary) hypertension Palpitations Sinus tachycardia Abnormal electrocardiogram HLD (hyperlipidemia) Home Medications ?Medication ?Instructions ?Recorded ?Last Taken ?Type ibuprofen 800 mg tablet 800 mg PO TID PRN Pain Or Fever 10/21/17 Unknown History losartan 100 mg tablet 100 mg PO QDAY #90 tabs 04/07/18 Unknown Rx metoprolol succinate 50 mg 50 mg PO QDAY #90 tabs 04/07/18 Unknown Rx tablet,extended release 24 hr (Toprol XL) pantoprazole 40 mg tablet,delayed 40 mg PO DAILY #30 tabs 01/03/19 Unknown History release baclofen 20 mg tablet 20 mg PO TID PRN 05/01/20 Unknown History bupropion HCl 150 mg tablet,12 hr 150 mg PO BID 05/01/20 Unknown History sustained-release gabapentin 300 mg capsule 300 mg PO TID PRN 05/01/20 Unknown History multivitamin 1 tab PO DAILY 05/01/20 Unknown History cyclobenzaprine 10 mg tablet 10 mg PO TID PRN Muscle Spasm #20 04/09/22 Unknown Rx TABLETS hydrocodone-acetaminophen 5-325mg 1 tab PO Q6H PRN PRN Pain 3 days 04/09/22 Unknown Rx 5mg-325mg #10 TABLETS Allergy/AdvReac Type Severity Reaction Status Date / Time cat dander (cats) Allergy Mild NEEDS Verified 03/20/24 12:08 FOLLOW-UP Environmental Allergies: Allergy Mild NEEDS Verified 03/20/24 12:08 Uncoded (dust) FOLLOW-UP lisinopril AdvReac Severe cough Verified 03/20/24 12:07 Family History Father Cancer Mother Hypertension Rheumatoid arthritis Fibromyalgia Surgical History Hx of hand surgery History of back surgery H/O left inguinal hernia repair (~1993) Social History Smoking Status: Current every day smoker tobacco type: cigarettes alcohol intake: former year quit: 2019 substance use type: does not use caffeine: Yes Type: coffee Number of servings: 3 during the past year weight has: decreased > 10 lbs what type of physical activity do you participate in: none seatbelt use: always do you feel safe at home: Yes EXAM Physical Exam Const Vital Signs: 03/20/24 12:07 03/20/24 12:08 03/20/24 13:07 Temperature 99 F Temperature Source Oral Pulse Rate 92 79 Respiratory Rate 15 14 Respiratory Effort Normal Respiratory Pattern Normal Blood Pressure 127/94 H 134/84 H Blood Pressure Mean 105 100 Pulse Ox 99 98 Oxygen Delivery Method Room Air Room Air 03/20/24 14:04 03/20/24 15:00 Temperature 98.9 F Temperature Source Temporal Pulse Rate 89 68 Respiratory Rate 16 16 Respiratory Effort Respiratory Pattern Blood Pressure 132/76 H 131/78 H Blood Pressure Mean 94 95 Pulse Ox 98 98 Oxygen Delivery Method Room Air Room Air MDM MDM MDM Narrative Medical decision making narrative: 48-year-old male with past medical history of seizures (seizure-free since 17 years old), HTN, depression, HLD presents for evaluation of myalgias and generalized weakness. Differential diagnosis includes but is not limited to viral infection, dehydration, intracranial abnormality, electrolyte abnormality, anemia, rhabdomyolysis, substance abuse, UTI. Laboratory workup ordered including chest x-ray and CT head. EKG chest x-ray reviewed see below. CBC without leukocytosis. Patient has no anemia with a hemoglobin of 11.3. This is macrocytic. Thrombocytopenia of 127. CMP shows dehydration with renal insufficiency. Patient has severe hypokalemia. P.o. potassium and IV potassium ordered. Patient has lactic acidosis of 2.2, likely secondary to dehydration. He has transaminitis with AST of 177 and ALT of 90. Patient has a history of alcohol abuse but denies any recent alcohol use. Ethanol level unremarkable. Not endorsing any abdominal pain. CPK is elevated at 5058. Patient is in rhabdomyolysis. Fluids running. CT head without any acute intracranial abnormality. Drug screen positive for MDMA. Patient was informed of this and denies use of ecstasy. UA pending at this time. Patient was discussed with the hospitalist service, Dr. Buenrostro. She accepted admission. Recommended CRP and ESR be added. This was ordered. Patient was updated of all his results and confirmed understanding of the plan for admission. EKG: Interpreted by me/EM physician: EKG shows normal sinus rhythm without any acute ischemic changes. Heart rate 79 Diagnostic: Interpreted by me/EM physician: Chest x-ray without pneumonia, effusion, cardiomegaly, pneumothorax Impression: 1. Rhabdomyolysis 2. Generalized weakness and myalgias secondary to #1 3. Renal insufficiency/dehydration 4. Severe hypokalemia 5. Transaminitis 6. Macrocytic anemia 7. Thrombocytopenia 8. Recurrent falls Lab Data Labs: Laboratory Results - last 24 hr 03/20/24 03/20/24 13:30 15:55 WBC 6.0 RBC 3.18 L Hgb 11.3 L Hct 33.2 L MCV 104.4 H MCH 35.5 H MCHC 34.0 RDW Std Deviation 51.2 H RDW Coeff of Kemi 13.3 Plt Count 127 L MPV 11.3 Sodium 137 Potassium 2.8 L Chloride 104 Carbon Dioxide 28.0 Anion Gap 5 BUN 15 Creatinine 1.31 H Estim Creat Clear Calc 78.79 Est GFR (MDRD) Af Amer 75 Est GFR (MDRD) Non-Af 62 BUN/Creatinine Ratio 11.5 Glucose 108 H Lactic Acid 2.2 H* Calcium 8.5 Total Bilirubin 0.90 AST 177 H ALT 90 H Alkaline Phosphatase 81 Total Creatine Kinase 5058 H Troponin I High Sens 18 Total Protein 6.9 Albumin 3.3 Globulin 3.6 Albumin/Globulin Ratio 0.9 Urine Opiates Screen NEGATIVE Urine Methadone Screen NEGATIVE Ur Barbiturates Screen NEGATIVE Ur Phencyclidine Scrn NEGATIVE Ur Amphetamines Screen NEGATIVE MDMA (Ecstasy) Screen POSITIVE H U Benzodiazepines Scrn NEGATIVE Urine Cocaine Screen NEGATIVE U Cannabinoids Screen NEGATIVE Ur Drug Screen Comment Ethyl Alcohol < 3.0 Radiography Diagnostic Testing: Clinical Impression(s) from Imaging Studies Brain CT 03/20/24 13:17 IMPRESSION: 1. Left superior scalp hematoma but no acute calvarial fracture or acute intracranial pathology. 2. Diffuse involutional changes and chronic ischemic small vessel white matter disease. AIDOC was utilized to assist in identifying pertinent positive findings. Electronically Signed: Devyn Chowdhury MD at 14:49 EST , Chest X-Ray 03/20/24 13:55 IMPRESSION: No radiographic evidence of acute cardiopulmonary disease. Electronically Signed: Devyn Chowdhury MD at 15:04 EST , Discharge Plan Triage Chief Complaint: Weakness ED Provider: Cole Goetz Dx/Rx/DC Orders Prescriptions: No Action ibuprofen 800 mg tablet 800 mg PO TID PRN (Reason: Pain Or Fever) gabapentin 300 mg capsule 300 mg PO TID PRN metoprolol succinate [Toprol XL] 50 mg tablet extended release 24 hr 50 mg PO QDAY Qty: 90 3RF losartan 100 mg tablet 100 mg PO QDAY Qty: 90 3RF pantoprazole 40 mg tablet,delayed release (DR/EC) 40 mg PO DAILY Qty: 30 Patient Comments: TAKE 1 TABLET BY MOUTH DAILY bupropion HCl 150 mg tablet sustained-release 12 hr 150 mg PO BID Patient Comments: TAKE 1 TABLET BY MOUTH TWICE DAILY baclofen 20 mg tablet 20 mg PO TID PRN Patient Comments: TAKE 1 TABLET THREE TIMES DAILY NEEDED multivitamin Tablet 1 tab PO DAILY cyclobenzaprine 10 mg tablet 10 mg PO TID PRN (Reason: Muscle Spasm) Qty: 20 0RF hydrocodone-acetaminophen 5-325 mg tablet 1 tab PO Q6H PRN PRN (Reason: Pain) 3 Days Qty: 10 0RF Primary Care Provider: Zena Chakraborty Referrals: Zena Chakraborty MD [Primary Care Provider] - Print Language: Bengali
[2024-03-20 13:46] LABS: Hematocrit 33.2 % (40-54); Hemoglobin 11.3 g/dL (13.0-16.5); Mean Corpuscular Hgb 35.5 pg (27.0-32.0); Mean Corpuscular Volume 104.4 fL (80-94); Mean Platelet Vol. 11.3 fl (6.2-12.0); Platelet Count 127 K/mm3 (150-450); RBC Distribution Width CV 13.3 % (11.6-14.6); RBC Distribution Width SD 51.2 fl (35.1-43.9); Red Blood Count 3.18 M/mm3 (4.6-6.2)
--- NOTE | 2024-03-20 13:55 | RAD_ITS ---
EXAM: XR CHEST, 2 VIEWS CLINICAL INDICATION: Weakness TECHNIQUE: Frontal and lateral views of the chest. COMPARISON: No relevant prior studies available. FINDINGS: LUNGS AND PLEURAL SPACES: Unremarkable. No consolidation or edema. No pneumothorax. No effusion. HEART: Unremarkable. Cardiac silhouette not enlarged. MEDIASTINUM: Central airways and mediastinal contour are unremarkable. BONES/JOINTS: Unremarkable. No acute fracture. SOFT TISSUES: Unremarkable. RAD/Chest PA and Lateral IMPRESSION: No radiographic evidence of acute cardiopulmonary disease. Electronically Signed: Devyn Chowdhury MD at 15:04 EST ,
[2024-03-20] MEDS: Acetaminophen 500 MG Tablet 1000 MG PO ×2 (14:02→21:18)
[2024-03-20 14:11] LABS: Alcohol, Blood (Medical)-Serum < 3.0 mg/dL
[2024-03-20 14:20] LABS: ALB/GLOB Ratio 0.9 RATIO (0.9-2.4); AST(SGOT) 177 U/L (15-37); Alanine Aminotransfer ALT/SGPT 90 U/L (16-61); Albumin, Serum 3.3 g/dL (3.2-5.0); Alkaline Phosphatase 81 U/L (45-117); Anion Gap 5 (5-15); BUN 15 mg/dL (7-18); BUN/Creat Ratio 11.5 RATIO (10-20); CPK Total, Creatine Kinase 5058 U/L (39-308); Calcium,Total 8.5 mg/dL (8.5-10.1); Chloride 104 mmol/L (98-107); Creatinine, Serum 1.31 mg/dL (0.70-1.30); EST Glomerular Filtration Rate 62 mL/min (>60); Est Glom Filt Rate - Afr Amer 75 mL/min (>60); Estimated Creatinine Clearance 78.79 ml/min; Globulin 3.6 g/dL (2.2-4.2); Glucose 108 mg/dL (74-106); Potassium 2.8 mmol/L (3.5-5.1); Protein, Total 6.9 g/dL (6.4-8.2); Sodium Level 137 mmol/L (136-145); Troponin-I HS 18 pg/mL (3.0-78.0)
[2024-03-20 14:22] LABS: Lactic Acid 2.2 mmol/L (0.4-1.9)
--- NOTE | 2024-03-20 14:22 | ED.RN ---
LACTIC ACID 2.2. AWARE
[2024-03-20] MEDS: 0.9% Normal Saline (1000mL) 1,000 ML 999 ML IV (14:27)
[2024-03-20] MEDS: Potassium Chloride Oral Soln 20 MEQ/15 ML UDC 40 MEQ PO (15:23)
[2024-03-20] MEDS: Potassium Chloride 10mEq/100mL 10 MEQ/100 ML IV.SOLN. 100 MEQ IV BOLUS ×4 (15:23→18:34)
--- NOTE | 2024-03-20 15:43 | PCM.HP.STD ---
HPI - General General Date of Admission: 03/20/24 Date of Service: 03/20/24 Chief Complaint: Muscle pain/falls HPI Narrative MAURO MORENO, is a 48 M who presented to the emergency department at [facility] on 03/20/2024 with myalgias and generalized weakness. He states his symptoms started a few weeks ago at which time he had a fall and hit his head. He did not have loss of consciousness at that time but did suffer from a hard left hip blow to his head that he has a posterior scalp hematoma. He was not evaluated for this at that time. He stated since that point in time he has been having generalized weakness most notably in his lower extremities and myalgias again most notably in his lower extremities proximally. He states that he feels that his muscles are getting weaker and that he has had several falls since that initial fall. He does have multiple scrapes and bruises. His muscles are very tender in the proximal anterior aspect of his thighs and in his lateral hips and buttock. Muscles are to lesser extent sore in the upper extremity and distal lower extremities. He denied any fever or chills, adamantly denies any alcohol use with complete abstinence in the last month. He denies any illicit drug use or other substances, he has had no new medication changes and not taken any [id number] medications or dietary supplements/energy drinks. Vital signs on presentation showed temperature of 99, heart rate 92, respiratory rate 15, blood pressure 04/02/1993 and pulse ox was 99% room air. CBC shows a normal white count. He is mildly anemic with a hemoglobin of 11.3. Guaiac was negative. Anemia is macrocytic in nature. Platelet count was low at 127,000. Chemistry panel shows hypokalemia potassium of 2.8. He has CLIFFORD with a serum creatinine of 1.31 but BUN is not elevated. His lactic acid was 2.2 with a normal calcium. AST was 177 and ALT was 90. Serum creatinine is 5058 however his UA shows no occult blood or RBCs so this is not consistent with rhabdomyolysis. I did obtain a sed rate and CRP with a sed rate being normal at 18 and his CRP being mildly elevated at 27.1. CT of the brain is unchanged from previous showing a left superior scalp hematoma with no fracture and diffuse involutional changes consistent with chronic ischemic small vessel white matter disease. Chest x-ray showed no acute findings. [facility] Medical History Alcohol abuse Smoker Hypertension Seizures Acid reflux Constipation Abdominal pain SOB (shortness of breath) Arthritis Back problem Fatigue Sleep apnea History of epilepsy Nicotine dependence Essential (primary) hypertension Palpitations Sinus tachycardia Abnormal electrocardiogram HLD (hyperlipidemia) Home Medications ?Medication ?Instructions ?Recorded ?Last Taken ?Type losartan 100 mg tablet 100 mg PO QDAY #90 tabs 04/07/18 Unknown Rx pantoprazole 40 mg tablet,delayed 40 mg PO DAILY #30 tabs 01/03/19 Unknown History release baclofen 20 mg tablet 20 mg PO BID PRN ASK PCP 05/01/20 Unknown History gabapentin 300 mg capsule 300 mg PO BID PRN ASK PCP 05/01/20 Unknown History aripiprazole 10 mg tablet (Abilify) 10 mg PO DAILY 03/20/24 Unknown History bupropion HCl 150 mg tablet,12 hr 150 mg PO BID 03/20/24 Unknown History sustained-release (Wellbutrin SR) fluticasone propionate 50 2 spray intranasal DAILY 03/20/24 Unknown History mcg/actuation nasal spray,suspension metoprolol succinate 25 mg 25 mg PO DAILY 03/20/24 Unknown History tablet,extended release 24 hr trazodone 100 mg tablet 100 mg PO QHS 03/20/24 Unknown History Allergy/AdvReac Type Severity Reaction Status Date / Time cat dander (cats) Allergy Mild NEEDS Verified 03/20/24 12:08 FOLLOW-UP Environmental Allergies: Allergy Mild NEEDS Verified 03/20/24 12:08 Uncoded (dust) FOLLOW-UP lisinopril AdvReac Severe cough Verified 03/20/24 12:07 Family History Father Cancer Mother Hypertension Rheumatoid arthritis Fibromyalgia Surgical History Hx of hand surgery History of back surgery H/O left inguinal hernia repair (~1993) Social History Smoking Status: Current every day smoker tobacco type: cigarettes alcohol intake: former year quit: 2019 substance use type: does not use caffeine: Yes Type: coffee Number of servings: 3 during the past year weight has: decreased > 10 lbs what type of physical activity do you participate in: none seatbelt use: always do you feel safe at home: Yes ROS Constitutional Constitutional: Reports fatigue and weakness; Denies anorexia, change in weight, chills, fever(s), malaise, night sweats or other Eyes Eyes: Denies blurry vision, change in eye color, change in vision, discharge from eye(s), double vision, erythema, eye pain, loss of vision or other ENT HEENT: Denies abnormal hearing, dysphagia, ear pain, epistaxis, headache(s), hearing loss, nasal congestion, nasal discharge, post nasal drip, sinus pressure, sore throat or other Cardiovascular Cardiovascular: Denies chest pain, claudication, dyspnea on exertion, edema, lightheadedness, orthopnea, palpitations, paroxysmal nocturnal dyspnea, rapid heart rate, syncope or other Respiratory/Chest Respiratory/Chest: Denies cough, dyspnea, excessive phlegm production, hemoptysis, productive cough, shortness of breath at rest, shortness of breath with exertion, wheezing or other Gastrointestinal Gastrointestinal: Denies abdominal pain, coffee ground emesis, constipation, diarrhea, dyspepsia, hematemesis, hematochezia, loose stools, melena, nausea, vomiting or other Genitourinary Genitourinary: Denies burning urination, difficulty urinating, dysuria, hematuria, nocturia, urinary frequency, urinary hesitancy, urinary incontinence, urinary urgency or other Musculoskeletal Musculoskeletal: Reports myalgias Neurologic Neurologic: Reports abnormal gait; Denies abnormal speech, confusion, disequilibrium, dizziness, focal weakness, headache(s), numbness, paresthesias, seizure-like activity, seizures, syncope, tingling, tremor(s) or other Psychiatric Psychiatric: Denies anxiety, depression, homicidal ideation, suicidal ideation or other Endocrine Endocrinology: Denies change in body appearance, cold intolerance, excessive sweating, heat intolerance, polydipsia, polyuria or other Hematologic/Lymphatic Hematologic/Lymphatic: Denies anemia, easy bleeding, easy bruising, lymphadenopathy or other Allergic/Immunologic Allergic/Immunologic: Reports other Details: Multiple bruises ; Denies rhinitis, hives, eczemia or asthma Vital Signs Vital Signs Vital Signs: 03/20/24 12:07 03/20/24 12:08 03/20/24 13:07 Temperature 99 F Temperature Source Oral Pulse Rate 92 79 Respiratory Rate 15 14 Respiratory Effort Normal Respiratory Pattern Normal Blood Pressure 127/94 H 134/84 H Blood Pressure Mean 105 100 Pulse Ox 99 98 Oxygen Delivery Method Room Air Room Air 03/20/24 14:04 03/20/24 15:00 Temperature 98.9 F Temperature Source Temporal Pulse Rate 89 68 Respiratory Rate 16 16 Respiratory Effort Respiratory Pattern Blood Pressure 132/76 H 131/78 H Blood Pressure Mean 94 95 Pulse Ox 98 98 Oxygen Delivery Method Room Air Room Air Weight Weight: 99.337 kg Body Mass Index (BMI) 33.3 Physical Exam Const alert, oriented x3, no apparent distress and well nourished; Negative for average body habitus or healthy appearing Constitutional Narrative: Obese, middle-aged, white male, lying in bed, appears older than stated age, appears comfortable currently at rest but appears to be uncomfortable with movement. Nontoxic General Appearance: cooperative HEENT normocephalic, head/scalp atraumatic, hearing grossly normal bilaterally and moist oral mucous membranes HEENT Narrative: Mallampati 3, no thrush Eyes EOMs intact bilaterally and conjunctivae normal Eyes Narrative: No scleral icterus Neck no lymphadenopathy and supple Neck Narrative: Trachea midline, neck is short and thick, no thyroid enlargement noted Resp normal respiratory effort, no retractions, no use of accessory muscles and clear to auscultation bilaterally Resp Narrative: Diminished but clear Auscultation: Negative for rales, rhonchi or wheezes Cardio regular rate, regular rhythm, S1 normal heart sound, S2 normal heart sound, no murmurs, no rub, no gallops and no clicks GI normal to inspection, nondistended, normoactive bowel sounds, soft to palpation and non-tender Extremity no clubbing, cyanosis or edema Extremity Narrative: Tenderness with palpation especially at bilateral quadriceps and glutes, difficulty with straight leg raising due to pain in bilateral hips and quads, hamstrings are nontender, minimal tenderness in calves, no significant upper extremity tenderness Skin No no rashes or lesions noted, No no wounds, skin turgor normal, no jaundice, no petechiae and no mottling Skin Narrative: Patient was scattered ecchymosis does seem to have a rash on face at eyes, scattered abrasions and very stages of healing from falls Neuro oriented x3, CN's II-XII intact bilaterally, moves all extremities and no focal motor deficits Neuro Narrative: Able to move all extremities but seems to be painful when moving proximal lower extremities less pain with movement of distal lower extremities and upper extremities Speech: speech normal Psych Psych Narrative: Affect is flattened patient seems somewhat depressed with poor eye contact overall Results Lab / Micro Data 03/20/24 13:30 03/20/24 13:30 Labs: Laboratory Results - last 24 hr 03/20/24 13:30: WBC 6.0, RBC 3.18 L, Hgb 11.3 L, Hct 33.2 L, MCV 104.4 H, MCH 35.5 H, MCHC 34.0, RDW Std Deviation 51.2 H, RDW Coeff of Kemi 13.3, Plt Count 127 L, MPV 11.3, Sodium 137, Potassium 2.8 L, Chloride 104, Carbon Dioxide 28.0, Anion Gap 5, BUN 15, Creatinine 1.31 H, Estim Creat Clear Calc 78.79, Est GFR (MDRD) Af Amer 75, Est GFR (MDRD) Non-Af 62, BUN/Creatinine Ratio 11.5, Glucose 108 H, Lactic Acid 2.2 H*, Calcium 8.5, Total Bilirubin 0.90, AST 177 H, ALT 90 H, Alkaline Phosphatase 81, Total Creatine Kinase 5058 H, Troponin I High Sens 18, Total Protein 6.9, Albumin 3.3, Globulin 3.6, Albumin/Globulin Ratio 0.9, Ethyl Alcohol < 3.0 Micro: Microbiology 03/20/24 15:07 Stool Stool Occult Blood (VI[facility]) - Final 03/20/24 13:30 Mucosa - Throat SARS-CoV-2, Influenza & RSV (PCR) - Final Imaging Radiology Impression Brain CT 03/20/24 13:17 IMPRESSION: 1. Left superior scalp hematoma but no acute calvarial fracture or acute intracranial pathology. 2. Diffuse involutional changes and chronic ischemic small vessel white matter disease. AIDOC was utilized to assist in identifying pertinent positive findings. Electronically Signed: Devyn Chowdhury MD at 14:49 EST , Chest X-Ray 03/20/24 13:55 IMPRESSION: No radiographic evidence of acute cardiopulmonary disease. Electronically Signed: Devyn Chowdhury MD at 15:04 EST Reading Location ID and State: [facility] / [place] Tel , Service support , Assessment & Plan Assessment/Plan (1) Elevated CK: (2) Myalgia: (3) Anemia: (4) Thrombocytopenia: (5) Elevated serum creatinine: (6) Lactic acidosis: (7) Transaminitis: PLAN: Plan Acute lower extremity myalgias and weakness with elevated CPK -Seems to be proximal mostly in the thighs anteriorly in the hips -CK is markedly elevated however not consistent with rhabdomyolysis secondary to picture that UA gives with no occult blood or RBCs which is inconsistent with rhabdo -Patient takes no medications which should induce CK elevation/patient denies substance use, supplements, or energy drinks -Check aldolase -Check KEYLA with reflex panel -TSH is within normal limits -Check MRI of bilateral thighs/glutes -Given presentation feel that we need to rule out poly and dermatomyositis -Tylenol scheduled -As needed Toradol--> monitor renal function closely--> ordered x 3 days -As needed oxycodone -PT/OT consultation Lactic acidosis -Appears that it may be related to some dehydration -Anticipate should clear quickly with IV fluids Anemia (macrocytic)/thrombocytopenia -Both appear to be acute based on previous labs -Will check coags in a.m. -Check B12 and folate level with macrocytosis -Stool is negative for occult blood Transaminitis -Repeat lab in a.m. -AST is likely elevated due to CPK elevation however unclear as to etiology of ALT elevation -COVID/flu/RSV are negative Elevated serum creatinine -Slightly above baseline at 1.31 with a baseline of 1-1.15 -IV fluids as ordered -Recheck in a.m. GERD -Continue PPI Essential hypertension -Continue home losartan -Continue home metoprolol Seasonal allergies -Continue home nasal fluticasone Insomnia -Continue home trazodone History of alcohol abuse -Patient adamantly denies any recent alcohol use in the last month History of seizure disorder -Patient is not on any AEDs and has not had a seizure since he was 16 years old MAI -CPAP ordered at at bedtime for 13 cm of water as previously recommended on polysomnography Tobacco abuse -Nicotine patch available DVT prophylaxis -Enoxaparin 40 daily CODE STATUS Full code as verified on admission Charges/Coding Visit Charges Inpatient E&M: 89433 Init Hosp L3
[2024-03-20 16:01] LABS: Mucous, Urine 0 SEEN /hpf (<or=2+); Red Blood Cells-Urine 0 SEEN /hpf (0-5); Squamous Epithelial Cells - UA 0 SEEN /hpf (0-5)
[2024-03-20 16:09] LABS: Color, Urine Yellow (Yellow); Glucose, Dipstick Normal (Normal); Ketone-Dipstick Negative (Negative); Leukocyte Esterase-Dipstick 25 /ul (Negative); Nitrite-Dipstick Negative (Negative); Occult Blood-Urine Negative /ul (Negative); Protein-Dipstick 15 mg/dl (Negative); Specific Gravity, Urine 1.005 (1.002-1.030); Urine Bilirubin Dipstick Negative (Negative); Urine Clarity Clear (Clear); Urine Urobilinogen 1 mg/dl (Normal)
[2024-03-20 16:22] LABS: Amphetamine Urine VISTA NEGATIVE (<1000 ng/mL); Barbiturate Urine VISTA NEGATIVE (< 200 ng/mL); Benzodiazepine Urine VISTA NEGATIVE (< 200 ng/mL); Cocaine Urine VISTA NEGATIVE (< 300 ng/mL); Ecstacy Urine VISTA POSITIVE (< 500 ng/mL); Methadone Urine VISTA NEGATIVE (< 300 ng/mL); PCP Urine VISTA NEGATIVE (< 25 ng/mL); THC Urine VISTA NEGATIVE (< 50 ng/mL); Vista UDS pH Range 7
[2024-03-20 16:56] LABS: Bacteria RARE /hpf (None Seen); Renal Epithelial Cells 0-5 SEEN /hpf (0-5); White Blood Cells 0-5 SEEN /hpf (0-5)
[2024-03-20 17:39] LABS: Reflex Lactate? Y
[2024-03-20 17:41] LABS: Erythrocyte Sedimentation Rate 18 mm/hr (0-20)
[2024-03-20 20:15] LABS: Lactic Acid 0.9 mmol/L (0.4-1.9)
[2024-03-20] MEDS: 0.9% Normal Saline (1000mL) 1,000 ML 150 ML IV (20:17)
[2024-03-20] MEDS: oxyCODONE 5 MG Tablet PO (21:17)
[2024-03-20] MEDS: traZODone 100 MG Tablet PO (21:18)
[2024-03-20] MEDS: buPROPion (SR) 150 MG Tablet.SA PO (21:18)
[2024-03-20] MEDS: Gabapentin 300 MG Capsule PO (21:23)
[2024-03-20 21:31] LABS: International Normalized Ratio 1.1
[2024-03-20 21:32] LABS: Partial Thromboplast Time 27.3 Seconds (24.1-36.2)
[2024-03-20 21:46] LABS: Vitamin B12 1031 pg/mL (211-911)
[2024-03-21] VITALS (7 sets, daily range): BP systolic 124–156; BP diastolic 66–99; PULSE 78–99; RESP 16–18; TEMP 36.8–37.2; O2SAT 96–100; BMI 33.4
[2024-03-21] MEDS: oxyCODONE 5 MG Tablet PO ×4 (02:20→22:48)
[2024-03-21] MEDS: 0.9% Normal Saline (1000mL) 1,000 ML 150 ML IV (02:55)
[2024-03-21 05:36] LABS: Absolute Lymphocyte Count 1.23 X10^3/uL (0.83-4.51); Absolute Neutrophil Count 3.1 X10^3/uL (2.0-7.7); Basophil# 0.06 X10^3/uL; Basophil% 1.2 % (0-1); Eosinophil# 0.12 X10^3/uL; Eosinophils% 2.4 % (0-5); Hematocrit 31.6 % (40-54); Hemoglobin 10.5 g/dL (13.0-16.5); Lymphocyte # 1.23 X10^3/ul (0.83-4.51); Lymphocyte % 24.5 % (19-41); Mean Corp Hgb Conc 33.2 g/dL (32-36); Mean Corpuscular Hgb 35.5 pg (27.0-32.0); Mean Corpuscular Volume 106.8 fL (80-94); Mean Platelet Vol. 11.6 fl (6.2-12.0); Monocyte# 0.51 X10^3/uL; Monocyte% 10.2 % (0-10); NRBC Flagged by Analyzer 0.4 % (0-5); Neutrophil # 3.06 X10^3/uL (2.7-7.7); Neutrophil % 60.9 % (47-70); Platelet Count 152 K/mm3 (150-450); RBC Distribution Width CV 13.7 % (11.6-14.6); Red Blood Count 2.96 M/mm3 (4.6-6.2)
[2024-03-21] MEDS: Morphine 2 MG/ML Syringe IV ×2 (06:07→08:55)
[2024-03-21] MEDS: Acetaminophen 500 MG Tablet 1000 MG PO ×3 (06:08→22:49)
[2024-03-21 06:35] LABS: ALB/GLOB Ratio 0.9 RATIO (0.9-2.4); AST(SGOT) 169 U/L (15-37); Alanine Aminotransfer ALT/SGPT 85 U/L (16-61); Albumin, Serum 3.1 g/dL (3.2-5.0); Alkaline Phosphatase 74 U/L (45-117); Anion Gap 5 (5-15); BUN 11 mg/dL (7-18); BUN/Creat Ratio 10.6 RATIO (10-20); CPK Total, Creatine Kinase 5365 U/L (39-308); Calcium,Total 7.8 mg/dL (8.5-10.1); Chloride 115 mmol/L (98-107); Creatinine, Serum 1.04 mg/dL (0.70-1.30); EST Glomerular Filtration Rate 81 mL/min (>60); Est Glom Filt Rate - Afr Amer 98 mL/min (>60); Estimated Creatinine Clearance 99.57 ml/min; Globulin 3.3 g/dL (2.2-4.2); Glucose 107 mg/dL (74-106); Magnesium 1.2 mg/dL (1.6-2.6); Phosphorus 3.4 mg/dL (2.5-4.9); Potassium 3.5 mmol/L (3.5-5.1); Protein, Total 6.4 g/dL (6.4-8.2); Sodium Level 142 mmol/L (136-145)
[2024-03-21] MEDS: Ensure Plus High Protein 120 ML LIQUID PO ×3 (08:55→17:14)
[2024-03-21] MEDS: 0.9% Saline Lock 10 ML Syringe IV ×4 (08:57→18:53)
[2024-03-21] MEDS: Losartan Potassium 100 MG Tablet PO (08:58)
[2024-03-21] MEDS: Pantoprazole Sodium 40 MG Tablet PO (08:58)
[2024-03-21] MEDS: ARIPiprazole 10 MG Tablet PO (08:58)
[2024-03-21] MEDS: buPROPion (SR) 150 MG Tablet.SA PO ×2 (08:59→22:49)
[2024-03-21] MEDS: Metoprolol(XL)Succ 25 MG Tablet PO (08:59)
--- NOTE | 2024-03-21 09:30 | MRI_ITS ---
STUDY: MRI LOWER EXTREMITY RIGHT THIGH REASON FOR EXAM: Male, 48 years old. Bilateral hip and thigh myositis, general weakness, full body myalgias. TECHNIQUE: Standardized fat and water weighted pulse sequences were obtained in all 3 orthogonal planes. COMPARISON: None. FINDINGS: Normal subcutis adipose space. There is mild edema in the tensor fascia carols muscles bilaterally. There is also mild edema in the left iliopsoas, left pectineus, and right obturator externus muscles. Normal quadriceps, adductor and hamstring muscles. Normal quadriceps extensor mechanism with normal rectus femoris, vastus medialis, intermedius and lateralis muscles. Normal femur. MRI/Lower Ext/No Jt/w/o IMPRESSION: Mild edema in the tensor fascia carlos muscles bilaterally. Mild edema in the left iliopsoas, left pectineus, and right obturator externus muscles. Otherwise, unremarkable right thigh. Electronically Signed: Vernon Buenrostro MD at 12:24 EST ,
--- NOTE | 2024-03-21 09:30 | MRI_ITS ---
STUDY: MRI LOWER EXTREMITY LEFT THIGH REASON FOR EXAM: Male, 48 years old. Bilateral hip and thigh myositis, general weakness, full body myalgias. TECHNIQUE: Standardized fat and water weighted pulse sequences were obtained in all 3 orthogonal planes. COMPARISON: None. FINDINGS: Normal subcutis adipose space. There is mild edema in the tensor fascia carlos muscles bilaterally. There is also mild edema in the left iliopsoas, left pectineus, and right obturator externus muscles. Normal quadriceps, adductor and hamstring muscles. Normal quadriceps extensor mechanism with normal rectus femoris, vastus medialis, intermedius and lateralis muscles. Normal femur. MRI/Lower Ext/No Jt/w/o IMPRESSION: Mild edema in the tensor fascia carlos muscles bilaterally. Mild edema in the left iliopsoas, left pectineus, and right obturator externus muscles. Otherwise, unremarkable left thigh. Electronically Signed: Vernon Buenrostro MD at 12:23 EST ,
[2024-03-21] MEDS: FLU VACC 2024-25(6MOS UP)/PF 45 MCG/0.5 ML SYRINGE IM (11:52)
[2024-03-21] MEDS: Enoxaparin 40 MG/0.4 ML Syringe SC (11:53)
--- NOTE | 2024-03-21 12:18 | MRI_ITS ---
STUDY: MRI CERVICAL SPINE WITHOUT CONTRAST REASON FOR EXAM: Male, 48 years old. arm and leg weakness, GENERALIZED WEAKNESS, FULL BODY MYALGIAS TECHNIQUE: Standardized fat and water weighted pulse sequences were obtained in the sagittal and axial planes. COMPARISON: None FINDINGS: Normal foramen magnum and brainstem-cervical cord junction. Normal craniovertebral junction. Normal anterior atlantoaxial articulation. Normal odontoid process. There is straightening of normal lordotic curvature possibly due to positioning artifact.. Normal vertebral bodies and posterior osseous elements. C2-3: Normal endplates. Normal disc height, signal and morphology. Normal central canal and intervertebral neural foramina. C3-4: Normal endplates. Normal disc height, signal and morphology. Normal central canal and intervertebral neural foramina. C4-5: Normal endplates. Normal disc height, signal and small left posterolateral disc protrusion.. Normal central canal and intervertebral neural foramina. C5-6: Normal endplates. Normal disc height, signal and minor bulging of the disc with small left posterolateral disc protrusion. Minor narrowing of the central canal. Mild left neural foraminal encroachment and moderate narrowing on the right secondary to disc disease and bony hypertrophy C6-7: Narrowed disc space and minor bulging of the disc.. Minor narrowing of the central canal and mild bilateral neural foraminal encroachment secondary to disc disease and bony hypertrophy C7-T1: Normal endplates. Normal disc height, signal and morphology. Normal central canal and intervertebral neural foramina. Normal cervical cord. Normal visualized soft tissue structures. MRI/Spine Cervical (Routine) IMPRESSION: No evidence for acute fracture or other significant bony pathology.. Mild spondylosis and spinal stenosis secondary to disc disease and bony hypertrophy at C5-6 and C6-7 Electronically Signed: Mckay Jarrett MD at 16:54 EST ,
--- NOTE | 2024-03-21 12:20 | CASEMGMT ---
RN PENNY [employer] DRIVER CM?to room to meet with patient for initial transition planning/care coordination assessment. RN PENNY?introduced self and role at [facility]. Pt voices understanding and consents to assessment?at this time. Pt resting in bed in no distress at this time. Pt is A/O at this time and answers all questions appropriately. Care providers, pharmacy, and demographics verified/updated at this time. Strata:?1 PCP: Dr Chakraborty Specialists: denies Preferred Pharmacy: [facility] [place], [place] Insurance: [employer] Prescription Benefit: yes LNOK: 3 adult children. Mother, Yuli Living Arrangements: Lives w/mother in 2-story home w/basement and 3 steps to enter. Flight of stairs to basement w/handrail. Pt states his bedroom is in the basement and there is a bathroom down there as well. Pt reports some difficulty w/stairs currently and states therapy did work w/stairs w/him today. Pt reports being independent w/ADL's @ baseline. Pt's mom is able to assist pt, if needed. Transportation:?Pt states drives self and states no transportation concerns at this time. His mom will take him home @ discharge. DME: Pt states he has a cane available. He denies need for further DME. Discussed discharge planning. Pt wishes to discharge home. He has done OP therapy @ [facility] and may be interested in doing this again, but he is not sure. He states would take a script for OP therapy @ discharge and then will decide once he gets home. ELVI FRANCIS, Camelia, made aware. He states has no concerns with going home at time of discharge. CM?to follow for any further discharge planning/needs. Pt voices no further concerns/needs at this time. Advised pt to ask for CM?if any further questions/concerns/needs arise. Voices understanding. PLAN: Home w/script for OP therapy. Devin MARIE RN, CM
[2024-03-21] MEDS: Magnesium Sulfate 4gm/100mL 4 GM/100 ML IV.SOLN. IV (13:04)
--- NOTE | 2024-03-21 18:30 | PN.HOSP_ITS ---
Reason for Visit Reason for Visit: Diagnoses Anemia, unspecified (03/20/24) Thrombocytopenia, unspecified (03/20/24) Acidosis, unspecified (03/20/24) Myalgia, unspecified site (03/20/24) Elevation of levels of liver transaminase levels (03/20/24) Abnormal levels of other serum enzymes (03/20/24) Other specified abnormal findings of blood chemistry (03/20/24) Subjective Subjective Patient was seen and examined today, his lower extremity MRI showed edema in the upper legs but otherwise was unremarkable. I ordered a cervical spine MRI which showed degenerative disease but there was no severe spinal cord impingement noted-there was noted to be mild spondylosis and spinal stenosis secondary to disc disease and bony hypertrophy at C5-6 and C6-7. I told patient earlier today that most likely I would not have a diagnosis for why he is weak in his lower extremity. Patient will most likely have to undergo outpatient testing to have a complete workup. He understood this. Objective Data Objective Data Vital Signs: Vital Signs Temp Pulse Resp BP Pulse Ox O2 Del Method 98.7 F 84 18 145/96 H 100 Room Air 03/21/24 17:24 03/21/24 17:24 03/21/24 17:24 03/21/24 17:24 03/21/24 17:24 03/21/24 17:24 Oxygen Delivery Method Room Air Weight: 100 kg Body Mass Index (BMI) 33.4 Intake & Output: Intake and Output for Last 24 Hours 03/19/24 03/20/24 03/21/24 23:59 23:59 23:59 Intake Total 1400 / 1750 3995 / 3995 Balance 1400 / 1750 3995 / 3995 Lab / Micro Data 03/21/24 01:44 03/21/24 01:44 Labs: Laboratory Results - last 24 hr 03/20/24 19:25: Lactic Acid 0.9, TSH 2.500, DOROTEO-1 Antibody TNP, SS-A/Ro IgG Antibody TNP, SS-B/La IgG Antibody TNP, Sm (Rdz) Antibody TNP, GRA[employer] OPERATOR Antibody TNP, Scl-70 Scleroderma Ab TNP, Antichromatin Antibodies TNP, Centromere B Antibody TNP, Miscellaneous Test Cancelled 03/20/24 21:14: PT 14.0, INR 1.1, APTT 27.3, Vitamin B12 1031 H, Folate 3.80 03/21/24 01:44: WBC 5.0, RBC 2.96 L, Hgb 10.5 L, Hct 31.6 L, MCV 106.8 H, MCH 35.5 H, MCHC 33.2, RDW Std Deviation 54.0 H, RDW Coeff of Kemi 13.7, Plt Count 152, MPV 11.6, Immature Gran % (Auto) 0.800, Neut % (Auto) 60.9, Lymph % (Auto) 24.5, [place] % (Auto) 10.2 H, Eos % (Auto) 2.4, Baso % (Auto) 1.2 H, Absolute Neuts (auto) 3.1, Absolute Lymphs (auto) 1.23, Nucleated RBC % 0.4, Sodium 142, Potassium 3.5, Chloride 115 H, Carbon Dioxide 22.0, Anion Gap 5, BUN 11, Creatinine 1.04, Estim Creat Clear Calc 99.57, Est GFR (MDRD) Af Amer 98, Est GFR (MDRD) Non-Af 81, BUN/Creatinine Ratio 10.6, Glucose 107 H, Calcium 7.8 L, Phosphorus 3.4, Magnesium 1.2 L, Total Bilirubin 0.70, AST 169 H, ALT 85 H, Alkaline Phosphatase 74, Total Creatine Kinase 5365 H, Total Protein 6.4, A lbumin 3.1 L, Globulin 3.3, Albumin/Globulin Ratio 0.9 Micro: Microbiology 03/20/24 15:07 Stool Stool Occult Blood (VI[facility]) - Final 03/20/24 13:30 Mucosa - Throat SARS-CoV-2, Influenza & RSV (PCR) - Final Radiography Diagnostic Testing: Radiology Impression Lower Extremity MRI 03/21/24 09:30 IMPRESSION: Mild edema in the tensor fascia carlos muscles bilaterally. Mild edema in the left iliopsoas, left pectineus, and right obturator externus muscles. Otherwise, unremarkable right thigh. Electronically Signed: Vernon Buenrostro MD at 12:24 EST , Lower Extremity MRI 03/21/24 09:30 IMPRESSION: Mild edema in the tensor fascia carlos muscles bilaterally. Mild edema in the left iliopsoas, left pectineus, and right obturator externus muscles. Otherwise, unremarkable left thigh. Electronically Signed: Vernon Buenrostro MD at 12:23 EST , Cervical Spine MRI 03/21/24 12:18 IMPRESSION: No evidence for acute fracture or other significant bony pathology.. Mild spondylosis and spinal stenosis secondary to disc disease and bony hypertrophy at C5-6 and C6-7 Electronically Signed: Mckay Jarrett MD at 16:54 EST , Physical Exam Const alert, oriented x3, no apparent distress and healthy appearing General Appearance: cooperative, well kempt and well developed Orientation / Consciousness: awake, oriented to person, oriented to place and oriented to time HEENT normocephalic and moist oral mucous membranes Eyes PERRL, EOMs intact bilaterally and conjunctivae normal Neck supple, no JVD, thyroid normal and no carotid bruits General: trachea midline Resp normal respiratory effort and clear to auscultation bilaterally Auscultation: Negative for rales, rhonchi or wheezes Cardio regular rate, regular rhythm, no murmurs, no rub and no gallops GI normal to inspection, nondistended, normoactive bowel sounds, soft to palpation, non-tender and non-distended Extremity no clubbing, cyanosis or edema Skin no rashes or lesions noted General Skin Exam: no breakdown Neuro oriented x3, CN's II-XII intact bilaterally, no focal motor deficits and no sensory deficits noted Sensorium / Orientation: awake and alert Speech: speech normal Psych affect normal Assessment & Plan Assessment/Plan (1) Myalgia: PLAN: Plan 1. Diffuse myalgias-etiology unclear at this point, continue present care, PT and OT are seeing patient #2 essential hypertension-patient will remain on his present medications #3 history of neuropathy-patient takes as needed gabapentin #4 chronic depression-patient is on Wellbutrin and Abilify Total clinical time spent by myself addressing the patient's medical issues, reviewing all of his data, and collaborating with patient's care team: 35 minutes Charges/Coding Visit Charges Inpatient E&M: 83468 Subs Hosp L2
[2024-03-21] MEDS: traZODone 100 MG Tablet PO (22:49)
[2024-03-22] MEDS: Baclofen 10 MG Tablet 20 MG PO (00:31)
[2024-03-22] MEDS: Gabapentin 300 MG Capsule PO (00:31)
[2024-03-22 04:55] VITALS: BP 156/84; PULSE 72; RESP 16; TEMP 36.9; O2SAT 97
[2024-03-22 06:00] VITALS: BMI 33.7
[2024-03-22] MEDS: Acetaminophen 500 MG Tablet 1000 MG PO (06:22)
[2024-03-22 08:06] VITALS: O2SAT 93
[2024-03-22 10:07] VITALS: BP 134/90; PULSE 95; RESP 16; TEMP 37.2; O2SAT 98
[2024-03-22] MEDS: Losartan Potassium 100 MG Tablet PO (10:20)
[2024-03-22] MEDS: ARIPiprazole 10 MG Tablet PO (10:20)
[2024-03-22] MEDS: Fluticasone 0.05% 1 SPRAY NASAL.SRY 2 SPRAY NASAL (10:20)
[2024-03-22] MEDS: Ensure Plus High Protein 120 ML LIQUID PO (10:20)
[2024-03-22] MEDS: Pantoprazole Sodium 40 MG Tablet PO (10:21)
[2024-03-22 10:22] VITALS: BP 134/90; PULSE 95
[2024-03-22] MEDS: buPROPion (SR) 150 MG Tablet.SA PO (10:22)
[2024-03-22] MEDS: Metoprolol(XL)Succ 25 MG Tablet PO (10:22)
--- NOTE | 2024-03-22 10:39 | DCINST_ITS ---
Discharge Instructions Diet Discharge Diet: No restrictions DC O2, CPAP, BIPAP needs Home O2 Discharge instructions: No Dressing / Incision Discharge Activity: Return to Normal Activity Weight Bearing Status: Full weight bearing Follow Up Care Test Results: Test results from this visit will be discussed in further detail at your follow- up appointment, if applicable. Discharge Plan Admission Admit Date/Time: 03/20/24 16:28 Primary Reason for Your Visit: muscle weakness Attending Provider: Aman Gonzalez Primary Care Provider: Zena Chakraborty Consulting Providers: Mariel Buenrostro Discharge Orders/Prescriptions Prescriptions: Continued gabapentin 300 mg capsule 300 mg PO BID PRN (Reason: neuropathy ) losartan 100 mg tablet 100 mg PO QDAY Qty: 90 3RF pantoprazole 40 mg tablet,delayed release (DR/EC) 40 mg PO DAILY Qty: 30 Patient Comments: TAKE 1 TABLET BY MOUTH DAILY baclofen 20 mg tablet 20 mg PO BID PRN (Reason: muscle pain) Patient Comments: TAKE 1 TABLET THREE TIMES DAILY NEEDED metoprolol succinate 25 mg tablet extended release 24 hr 25 mg PO DAILY fluticasone propionate 50 mcg/actuation spray,suspension 2 spray INTRANASAL DAILY bupropion HCl [Wellbutrin SR] 150 mg tablet sustained-release 12 hr 150 mg PO BID aripiprazole [Abilify] 10 mg tablet 10 mg PO DAILY trazodone 100 mg tablet 100 mg PO QHS Referrals / Follow Up: Zena Chakraborty MD [Primary Care Provider] - See Referral Note (in two weeks) Disposition Disposition (needs filled in before D/C Order can be placed): Home, Self Care
--- NOTE | 2024-03-22 11:00 | CASEMGMT ---
Pt with dc order in and ready to leave ambulating in the halls. Rounded with hospitalist, no outpt therapy rx given as pt did not ask for this when hospitalist was seeing him and pt ambulating halls. Nurse confirmed no CM needs as pt needs to dc.
[2024-03-22 15:07] LABS: Anti-Centromere B Ab <0.2 AI (0.0-0.9); Anti-Chromatin <0.2 AI (0.0-0.9); Anti-Jo <0.2 AI (0.0-0.9); Anti-Scleroderma-70 AB <0.2 AI (0.0-0.9); Anti-dsDNA Ab <1 IU/mL (0-9); RNP Ab <0.2 AI (0.0-0.9); SJOGREN'S Anti-SS-A test < 0.2 AI (0.0-0.9); SJOGREN'S Anti-SS-B test < 0.2 AI (0.0-0.9); Smith Ab <0.2 AI (0.0-0.9)
[2024-03-22 17:07] LABS: Aldolase 25.6 U/L (3.3-10.3)
[2024-03-22 17:07] LABS: Mycoplasma Pneum AB IgG 186 U/mL (0-99); Mycoplasma pneum. AB IgM < 770 U/mL (0-769)
== END 2024-03-22 11:11 | disposition home or self-care (01) | DRG 351 ==
LOC: ED 13:20 → MS3 19:34
PROVIDERS: Admitting Provider Internal Medicine; Emergency Provider Surgery; PCP Internal Medicine; Visit Provider Internal Medicine
DX: M62.82 Rhabdomyolysis (principal); D69.6 Thrombocytopenia, unspecified; E87.20 Acidosis, unspecified; D53.9 Nutritional anemia, unspecified; E78.5 Hyperlipidemia, unspecified; S00.03XA Contusion of scalp, initial encounter; G40.909 Epilepsy, unspecified, not intractable, without status epilepticus; F16.10 Hallucinogen abuse, uncomplicated; I10 Essential (primary) hypertension; E86.0 Dehydration; K21.9 Gastro-esophageal reflux disease without esophagitis; J30.2 Other seasonal allergic rhinitis; G47.33 Obstructive sleep apnea (adult) (pediatric); E87.6 Hypokalemia; M48.02 Spinal stenosis, cervical region; W19.XXXA Unspecified fall, initial encounter; M47.812 Spondylosis without myelopathy or radiculopathy, cervical region; F17.210 Nicotine dependence, cigarettes, uncomplicated; Z11.52 Encounter for screening for COVID-19; R74.01 Elevation of levels of liver transaminase levels; N28.9 Disorder of kidney and ureter, unspecified; R29.6 Repeated falls; R90.82 White matter disease, unspecified
CPT/HCPCS: 36415; 70450; 71046; 72141; 73718; 80053; 80307; 81001; 82077; 82085; 82274; 82550; 82607; 82746; 83605; 83735; 84100; 84443; 84484; 85025; 85027; 85610; 85652; 85730; 86140; 86225; 86235; 86738; 87631; 90656; 93005; 94668; 97162; 97166; 99285; 99406; A4216